=== PATIENT | female | born 1960 | race Caucasian/White ===

== ENCOUNTER → 2021-04-28 07:43 | Outpatient (CLI) | payer SELFPAY, OTHER ==
--- NOTE | 2021-04-27 | ASPIGT_PTH ---
PATIENT: GRABIEL DORANTES LOC: [place] U#:[id number] AGE/SX: 64/F ROOM: RE04/28/[address]: Dr. Lauro Antoine MD : 1960 BED: DIS: SPEC #: [id number] RECD: 04/28/21 09:30 STATUS: JULIANA KRISTA #: [id number] VALENTIN: 04/27/21 00:[address]: Lauro Antoine DEPT: SURGICAL PATHOLOGY RECD BY: Rudolph Sanabria ENTERED: 04/28/21 10:12 SP TYPE: ASP RAD OTHR DR: Rafi Manriquez PA-C Tissues: Kidney, NOS Procedures: FNA Specimen Adequacy Special Stain Group II Surgery Specimen Level IV Imprint (control) HEADER OPERATION: CT-guided left kidney biopsy PRE-OP DIAGNOSIS: Left kidney mass TISSUE SUBMITTED: Left kidney 18 gauge x6 MICROSCOPIC DIAGNOSIS Left kidney mass, CT-guided core biopsy: Clear cell renal cell carcinoma. See comment. AM:nevin 04/29/2021 COMMENT The specimen is evaluated at the time of biopsy by Dr. Freitas. Immediate Evaluation: Pass 1 - Consistent with clear cell carcinoma. Pass 2 - Consistent with clear cell carcinoma. Immunohistochemistry ([id number]) supports the above diagnosis. MICROSCOPIC DESCRIPTION Slides are reviewed. GROSS DESCRIPTION Received is one container labeled with the patient's name and not further designated. The specimen consists of multiple elongated fragments of yanes tissue. Each fragment measures approximately 1.5 cm in length and 0.1 cm in diameter. The specimen is totally submitted in one cassette. / AM:nevin 04/28/21 TC:0 CPT: 26053, 57906
--- NOTE | 2021-04-27 | IMM_PTH ---
PATIENT: GRABIEL DORANTES LOC: [place] U#:[id number] AGE/SX: 64/F ROOM: RE04/28/[address]: Dr. Lauro Antoine MD : 1960 BED: DIS: SPEC #: [id number] RECD: 04/29/21 12:31 STATUS: JULIANA REChela #: [id number] VALENTIN: 04/27/21 00:[address]: Lauro Antoine DEPT: IMMUNOHISTOCHEMISTRY RECD BY: Reanna Dillon ENTERED: 04/29/21 12:34 SP TYPE: IMMUNO OTHR DR: Rafi Manriquez PA-C Tissues: Left kidney Procedures: RCC (add) E-CAD (initial) CD10 (add) CEA (add) CK20 (add) CK5-6 (add) CK7 (add) CK8 (add) Vimentin (add) 34BE12 (add) Pankeratin (add) PHYSICIAN & INSTITUTION [place] [phone] SPECIMEN INFORMATION: Tissue Source: Left kidney biopsy Clinical Info: Left kidney mass Specimen Number: [id number] CPT code: 74641, 69033 x10 METHODOLOGY: Deparaffinized sections of prefer/formalin-fixed tissue or PAP/DQ stained slides are incubated with monoclonal/polyclonal antibodies/oligonucleotide probes. Localization is made via biotin free immunoperoxidase method. Appropriate controls are performed and reacted as expected. Results on target cell population are indicated in the following table: RESULTS: ANTIBODY / CLONE RESULT E-Cad (ECH-6) negative AE1-3 (AE1/AE3/PCK26) positive CK7 (OV-TL12/30) negative CK8 (70scerD80) negative CK20 (KS20.8) negative CD10 (56C6) negative Vimentin (V9) positive 34BE12 (34BE12) negative RCC (PN-15) negative CK5-6 (D5 & 1684) negative CEA (11-7/TF-3HB-1) negative These tests were developed and their performance characteristics determined by [facility]. They may not have been cleared or approved by the U.S. Food and Drug Administration. The FDA has determined that such clearance or approval is not necessary. The above immunohistochemical/dualISH markers are ordered and reviewed by the Pathologist. INTERPRETATION: Left kidney, CT-guided biopsy: Consistent with clear cell renal cell carcinoma. AM:nevin 04/30/2021
[2021-04-28] VITALS (9 sets, daily range): BP systolic 106–141; BP diastolic 67–96; PULSE 97–115; RESP 13–24; TEMP 37.4; O2SAT 92–96; BMI 17.3
[2021-04-28 08:01] LABS: Absolute Lymphocyte Count 0.94 X10^3/uL (0.83-4.51); Absolute Neutrophil Count 7.5 X10^3/uL (2.0-7.7); Basophil# 0.04 X10^3/uL; Basophil% 0.4 % (0-1); Eosinophil# 0.09 X10^3/uL; Hemoglobin 11.3 g/dL (12.0-15.0); Lymphocyte # 0.94 X10^3/ul (0.83-4.51); Lymphocyte % 10.5 % (19-41); Mean Corp Hgb Conc 31.4 g/dL (32-36); Mean Corpuscular Hgb 27.2 pg (27.0-32.0); Mean Corpuscular Volume 86.5 fL (81-99); Mean Platelet Vol. 9.4 fl (6.2-12.0); Monocyte# 0.41 X10^3/uL; Monocyte% 4.6 % (0-10); NRBC Flagged by Analyzer 0 % (0-5); Neutrophil # 7.46 X10^3/uL (2.7-7.7); Neutrophil % 83.2 % (47-70); Platelet Count 360 K/mm3 (150-450); RBC Distribution Width CV 13.2 % (11.6-14.6); RBC Distribution Width SD 41.4 fl (35.1-43.9); Red Blood Count 4.16 M/mm3 (4.2-5.4)
--- NOTE | 2021-04-28 08:06 | CT_ITS ---
STUDY: CTA CHEST REASON FOR EXAM: Female, 61 years old. STAGING FOR DISSEMINATED CANCER RADIATION DOSAGE (If Supplied By Facility): CTDIvol = ( 7.13 ) mGy, DLP = ( 169.30 ) mGycm TECHNIQUE: The examination was performed with the intravenous administration of IV 75mL Isovue-370. Post-processing of the angiographic images was performed, with multiplanar reformation and 3D reconstruction. Individualized dose optimization techniques were used for this CT. COMPARISON: None. FINDINGS: Intraluminal filling defects are seen in the left interlobar pulmonary artery extending into the left lower lobe branches. Smaller pulmonary emboli are also seen in branches of the right lower lobe pulmonary artery. Normal thoracic aorta and visualized great vessels. There is no demonstrated aortic dissection. Normal heart and pericardium. There is evidence of multiple necrotic mediastinal lymph nodes. There is also evidence of a necrotic bilateral hilar lymph nodes. Normal visualized trachea and bronchi. The lungs are well expanded. There is evidence of multiple bilateral pulmonary metastatic deposits involving both lungs. There is also evidence of pleural-based nodules in the anterior aspect of the right upper lobe abutting the overlying ribs. No definite bony destruction is seen at this time. Small right pleural effusion with right basilar atelectasis. Normal chest wall structures. There are degenerative changes of thoracic spine. There is evidence of heterogeneous mass in the left adrenal gland measuring 3.2 cm x 2.5 cm. The patient is known to have a large necrotic mass in the upper pole of the left kidney. CT/Chest WITH Contrast IMPRESSION: Pulmonary embolism as described. Small right pleural effusion with right basilar atelectasis. Multiple bilateral pulmonary metastasis necrotic in nature. Mediastinal and bilateral lymphadenopathy. Left adrenal mass. Electronically Signed: Jones Kwan MD at 9:58 EST , Service support ,
--- NOTE | 2021-04-28 08:06 | CT_ITS ---
PROCEDURE: CT GUIDED PERCUTANEOUS KIDNEY BIOPSY. DATE: 04/28/2021. INDICATION: Female, 61 years old. Left renal mass. PHYSICIAN: Jones Kwan M.D. MEDICATIONS: 2 mg of VERSED and 50 mcg of FENTANYL intravenously. Conscious sedation was started at 9:05 AM and terminated at 9:25 AM. The patient was independently monitored by the department nurse. ACCESS SITE: Lower pole left kidney. NEEDLE: 18-gauge core biopsy needle SPECIMEN: 6, 18-gauge cores were obtained. EBL: None. COMPLICATIONS: None immediate. RADIATION DOSAGE (If Supplied By Facility): CTDIvol = ( 9.5 ) mGy, DLP = ( 246.27 ) mGycm. Individualized dose optimization techniques were utilized. The risks, benefits, and alternatives to the procedure and sedation were explained to the patient. The specific risk of hemorrhage requiring further treatment or intervention was detailed and accepted. Written informed consent was obtained. Conscious sedation was performed. The patient was placed on the CT table in the prone position. Multiple axial images were obtained from the lung base through the caudal extent of the kidneys. An appropriate entry site was identified and a monico made on the skin. The skin overlying the [ left] posterior flank was prepped and draped in sterile fashion. 1% lidocaine was administered subcutaneously for local anesthesia. Initially, a 22 gauge needle was advanced and CT images confirmed good needle position. The 22 gauge needle was then exchanged for an 17 gauge introducer needle which was advanced. Repeat CT images confirmed good needle trajectory and tip position. The introducer needle was then advanced into the periphery of the inferior renal pole, and CT images were again obtained to confirm exact tip location. The inner stylet of the introducer needle was then removed and an 18 gauge coaxial needle was advanced thru the introducer needle and biopsy performed. A total of [6 ] passes were performed and the specimen collected was sent to Pathology for further evaluation. The needle was withdrawn. Hemostasis was achieved with manual compression and a sterile dressing was applied. Repeat CT images of the biopsy area was performed which demonstrated no gross bleeding or hematoma. The patient tolerated the procedure well without immediate complications. CT/Biopsy/Inj or Needle Placement IMPRESSION: Successful CT guided percutaneous kidney biopsy. Conscious sedation protocol was followed. Electronically Signed: Jones Kwan MD at 10:08 EST , Service support ,
[2021-04-28 08:11] LABS: International Normalized Ratio 1.1; Prothrombin Time (Protime)PT. 13.1 SECONDS (11.7-14.9)
[2021-04-28 08:17] LABS: ALB/GLOB Ratio 0.7 RATIO (0.9-2.4); AST(SGOT) 9 U/L (15-37); Alanine Aminotransfer ALT/SGPT 11 U/L (13-56); Albumin, Serum 2.9 g/dL (3.2-5.0); Alkaline Phosphatase 83 U/L (45-117); Anion Gap 3 (5-15); BUN 14 mg/dL (7-18); BUN/Creat Ratio 15.6 RATIO (10-20); Calcium,Total 9.1 mg/dL (8.5-10.1); Chloride 101 mmol/L (98-107); EST Glomerular Filtration Rate 68 mL/min (>60); Est Glom Filt Rate - Afr Amer 82 mL/min (>60); Globulin 4.3 g/dL (2.2-4.2); Glucose 107 mg/dL (74-106); LDH 125 U/L (84-246); Protein, Total 7.2 g/dL (6.4-8.2); Sodium Level 136 mmol/L (136-145)
[2021-04-28] MEDS: Midazolam 2 MG/2 ML Syringe IV ×2 (09:05→09:20)
[2021-04-28] MEDS: fentaNYL 100 MCG/2 ML Ampul IV ×2 (09:06→09:20)
[2021-04-28] MEDS: Lidocaine 2% (20 ml mdv) 20 ML Vial INFILT (09:20)
== END | disposition home or self-care (01) ==
PROVIDERS: PCP Physician Assistant; Referring Provider Internal Medicine Medical Oncology; Visit Provider Internal Medicine Medical Oncology
DX: C64.2 Malignant neoplasm of left kidney, except renal pelvis (principal); R31.9 Hematuria, unspecified; C78.02 Secondary malignant neoplasm of left lung; E27.9 Disorder of adrenal gland, unspecified; J90 Pleural effusion, not elsewhere classified; I26.99 Other pulmonary embolism without acute cor pulmonale
CPT/HCPCS: 50200; 36415; 71260; 77012; 80053; 83615; 85025; 85610; 85730; 88172; 88305; 88313; 88341; 88342; 99156; J7040; Q9967; A4216